=== PATIENT | female | born 1950 | race Two or more races ===

== ENCOUNTER 2016-12-30 03:29 | Inpatient (IN) | payer MEDICARE ==
[~2016-12-30] VITALS: Ht 160 cm; Wt 53.5 kg
[2016-12-30] MEDS ORDERED: MAG HYDROX/AL HYDROX/SIMETH 30 ML UDC PO PRN (07:00)
[2016-12-30] MEDS ORDERED: ACETAMINOPHEN 325 MG TABLET PO PRN (07:00)
[2016-12-30] MEDS ORDERED: MAGNESIUM HYDROXIDE 30 ML UDC PO PRN (07:00)
[2016-12-30 08:00] VITALS: BP 115/75
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
[2016-12-30 16:03] VITALS: BP 102/49
[2016-12-30] MEDS ORDERED: QUETIAPINE FUMARATE 25 MG TABLET PO SCH (17:00)
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
[2016-12-30 19:42] VITALS: BP 106/66
[2016-12-30] MEDS: TEMAZEPAM 7.5 MG CAPSULE PO PRN (22:18)
[2016-12-31] MEDS: CEPHALEXIN MONOHYDRATE 250 MG CAPSULE PO SCH ×5 (00:18→23:45)
[2016-12-31 06:50] LABS: BASOPHILS % (AUTO) 0.6 % (0.0-2.0); EOSINOPHILS # (AUTO) 0.1 /CMM (0.0-0.7); EOSINOPHILS % (AUTO) 2.3 % (0.0-6.0); HEMATOCRIT 39 % (33-45); HEMOGLOBIN 13.6 g/dL (11.5-14.8); LYMPHOCYTES # (AUTO) 1.5 /CMM (0.8-4.8); LYMPHOCYTES % (AUTO) 34.6 % (20.0-44.0); MEAN CORPUSCULAR HEMOGLOBIN 31 PG (26.0-33.0); MEAN CORPUSCULAR HGB CONC 35 g/dl (31.0-36.0); MEAN CORPUSCULAR VOLUME 89 fL (82-100); MONOCYTES # (AUTO) 0.4 /CMM (0.1-1.30); MONOCYTES % (AUTO) 8.1 % (2.0-12.0); NEUTROPHILS # (AUTO) 2.4 /CMM (1.8-8.9); NEUTROPHILS % (AUTO) 54.4 % (43.0-81.0); PLATELET COUNT (AUTO) 134 /CMM (150-450); RED BLOOD CELL COUNT(AUTO) 4.36 MIL/uL (4.0-5.2); WHITE BLOOD COUNT (AUTO) 4.4 K/uL (4.3-11.0)
[2016-12-31 07:07] LABS: ALBUMIN 3.6 g/dL (3.4-5.0); BILIRUBIN,TOTAL 0.7 mg/dL (0.2-1.0); CALCIUM, SERUM 8.6 mg/dL (8.5-10.1); CREATININE 0.7 mg/dL (0.6-1.3); PHOSPHORUS 3.3 mg/dL (2.5-4.9); POTASSIUM 3.8 mmol/L (3.5-5.1); TOTAL PROTEIN, SERUM 6.6 g/dL (6.4-8.2)
[2016-12-31 07:15] LABS: THYROID STIMULATING HORMONE 2.04 uIU/mL (0.358-3.74)
[2016-12-31 08:00] VITALS: BP 103/63
--- NOTE | 2016-12-31 08:41 | NUR ---
Initial Discharge Plan: Per patient, she lives at home with [place] [address]. ([phone]). Sw attempted to contact the only contact number provided on the face sheet. There was no answer, Sw unable to leave a voicemail as the voicemail box was full. Patient may need placement. Sw will help form a safe and proper discharge.
[2016-12-31] MEDS: clonazePAM 0.5 MG TABLET PO PRN (11:37)
[2016-12-31] MEDS: QUETIAPINE FUMARATE 25 MG TABLET PO SCH ×2 (12:26→16:30)
--- NOTE | 2016-12-31 13:35 | NUR ---
social worker aide faxed initial review packet to [facility] ( / ) [address] [place] [address]. social worker aide will follow-up.
[2016-12-31 16:00] VITALS: BP 117/56
[2016-12-31 20:00] VITALS: BP 122/85
[2016-12-31 20:26] VITALS: BP 122/85
[2016-12-31] MEDS: TEMAZEPAM 7.5 MG CAPSULE PO PRN (20:47)
[2017-01-01] MEDS: CEPHALEXIN MONOHYDRATE 250 MG CAPSULE PO SCH ×3 (05:13→16:58)
[2017-01-01 08:00] VITALS: BP 152/68
[2017-01-01] MEDS: QUETIAPINE FUMARATE 25 MG TABLET PO SCH ×3 (10:05→16:58)
--- NOTE | 2017-01-01 14:43 | NUR ---
Group Notes: S: Patient stated in group-"I don't have one question pending, but I would like to speak to you after the group." O: Patient participated in group discussion and was engaged with staff and peers. A: Patient remains confused at times and remain a poor historian. P: Will discuss patient's confusion with psychiatrist and will encourage patient to attend group activity.
[2017-01-01 15:59] VITALS: BP 112/66
[2017-01-01 19:00] VITALS: BP 152/68
[2017-01-01 20:31] VITALS: BP 128/69
[2017-01-01] MEDS: TEMAZEPAM 7.5 MG CAPSULE PO PRN (21:03)
[2017-01-02] MEDS: CEPHALEXIN MONOHYDRATE 250 MG CAPSULE PO SCH ×5 (00:28→23:52)
[2017-01-02] MEDS: clonazePAM 0.5 MG TABLET PO PRN ×2 (00:33→15:24)
[2017-01-02 08:00] VITALS: BP 120/75
[2017-01-02] MEDS: QUETIAPINE FUMARATE 25 MG TABLET PO SCH ×3 (08:57→16:55)
--- NOTE | 2017-01-02 09:58 | NUR ---
workers compensation legal secretary faxed initial review packet to [facility] (phone: [phone]/ ) [address] [place] [address]. workers compensation legal secretary will follow-up.
--- NOTE | 2017-01-02 11:22 | NUR ---
optical worker spoke to Kvng from [facility] (phone: [phone]/ ) [address] [place] [address], who stated that he was going to give the packet to his DON and would follow-up.
--- NOTE | 2017-01-02 11:24 | NUR ---
bingo worker spoke to Aquiles from [facility] ( / ) [address] [place] [address] who had questions regarding patient's insurance. Aquiles stated that it appears patient is getting money from workers compensation and the facility needs to know that she is no longer receiving workers compensation. Patient stated that she no longer receives workers compensation. Aquiles from the facility stated that his DON would like to come assess the patient. Sw will follow-up.
--- NOTE | 2017-01-02 15:26 | NUR ---
GPS RN: ADMINISTERED KLONOPIN 0.5MG FOR C/O ANXIETY AND RESTLESSNESS. PATIENT IS IN BED, INSTRUCTED ON RELAXATION TECHNIQUE, PROVIDED WITH CALM AND SAFE ENVIRONMENT, VS STABLE, CONTINUE TO MONITOR, 1:1 SITTER AT BEDSIDE FOR AWOL RISK.
[2017-01-02 16:00] VITALS: BP 100/67
--- NOTE | 2017-01-02 16:03 | NUR ---
Carl faxed initial review packet to [facility] ( /fax: [phone]) Carl will follow-up.
[2017-01-02 20:00] VITALS: BP 131/55
[2017-01-03] MEDS: CEPHALEXIN MONOHYDRATE 250 MG CAPSULE PO SCH ×3 (05:46→17:06)
[2017-01-03 08:00] VITALS: BP 100/61
[2017-01-03] MEDS: QUETIAPINE FUMARATE 25 MG TABLET PO SCH ×3 (08:48→17:05)
--- NOTE | 2017-01-03 14:49 | NUR ---
DR. DEVI CAME IN THE UNIT AND EXAMINED THE PT. AND ORDERED TO D/C 1:1.
--- NOTE | 2017-01-03 19:36 | NUR ---
GPS/RN NOTE: PATIENT IS AMBULATORY, WALKING AROUND THE UNIT WITH ANOTHER PATIENT. PATIENT IS CONFUSED, CALM, NO APPARENT DISTRESS NOTED. WILL CONTINUE TO MONITOR Q 15 MINS. TO [place] SAFETY.
[2017-01-03 20:00] VITALS: BP 142/62
--- NOTE | 2017-01-04 00:13 | NUR ---
GPS/RN NOTE: PATIENT REFUSED KEFLEX 250 MF CAP, OFFERED 3-4X, STILL REFUSED. PATIENT IS CONFUSED, NOT FOLLOWING DIRECTION.
[2017-01-04] MEDS: CEPHALEXIN MONOHYDRATE 250 MG CAPSULE PO SCH ×5 (05:44→23:24)
[2017-01-04 08:00] VITALS: BP 131/67
[2017-01-04] MEDS: QUETIAPINE FUMARATE 25 MG TABLET PO SCH ×3 (08:12→16:18)
[2017-01-04 16:10] VITALS: BP 107/78
[2017-01-04 20:00] VITALS: BP 144/81
[2017-01-04] MEDS: clonazePAM 0.5 MG TABLET PO PRN (20:53)
--- NOTE | 2017-01-04 20:53 | NUR ---
GPS/RN NOTE: PATIENT KEEPS ROAMING AROUND, WALKING, UNABLE TO KEEP STILL. KLONOPIN 0.5 MG TAB PO GIVEN.
[2017-01-05] MEDS: CEPHALEXIN MONOHYDRATE 250 MG CAPSULE PO SCH ×4 (05:58→23:00)
--- NOTE | 2017-01-05 07:30 | NUR ---
GPS/RN AM NOTE: PATIENT IS AWAKE, AMBULATORY, WALKING AROUND THE UNIT. PATIENT IS CONFUSED, CALM, NO APPARENT DISTRESS NOTED. WILL CONTINUE TO MONITOR Q 15 MINS. FOR SAFETY.
[2017-01-05 08:00] VITALS: BP 133/64
[2017-01-05 08:18] VITALS: BP 133/64
[2017-01-05] MEDS: QUETIAPINE FUMARATE 25 MG TABLET PO SCH ×2 (09:38→17:03)
[2017-01-05 16:00] VITALS: BP 97/68
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
[2017-01-05 20:16] VITALS: BP 147/71
[2017-01-05] MEDS: clonazePAM 0.5 MG TABLET PO PRN (22:58)
--- NOTE | 2017-01-05 23:01 | NUR ---
GPS/RN NOTE: PATIENT KEEPS GETTING UP, WALKING AROUND, KLONOPIN 0.5 MG TAB PO GIVEN.
[2017-01-06] MEDS: CEPHALEXIN MONOHYDRATE 250 MG CAPSULE PO SCH ×3 (05:05→17:12)
[2017-01-06 08:00] VITALS: BP 130/77
[2017-01-06] MEDS: QUETIAPINE FUMARATE 25 MG TABLET PO SCH ×2 (10:02→16:04)
--- NOTE | 2017-01-06 15:14 | NUR ---
garage worker spoke to Dainka from [facility] (phone: [phone]/ ) [address] [place] [address], who stated that they can accept the patient upon discharge. garage worker will follow-up.
[2017-01-06 16:00] VITALS: BP 147/62
[2017-01-06 19:50] VITALS: BP 140/71
[2017-01-07] MEDS: CEPHALEXIN MONOHYDRATE 250 MG CAPSULE PO SCH ×4 (00:06→17:00)
--- NOTE | 2017-01-07 06:42 | NUR ---
RN GPS NOTES PATIENT RESTING IN HER BED, NO CHANGES IN STATUS. ALL NEEDS ATTENDED TO. WILL ENDORSE TO NEXT SHIFT FOR CONTINUITY CARE.
[2017-01-07 07:28] LABS: APPEARANCE,URINE CLEAR (CLEAR)
[2017-01-07 07:29] LABS: BILIRUBIN,URINE NEGATIVE (NEGATIVE); BLOOD, URINE TRACE Ery/uL (NEGATIVE); COLOR,URINE YELLOW (YELLOW); KETONES,URINE NEGATIVE (NEGATIVE); LEUKOCYTE ESTERASE ,URINE 1+ (NEGATIVE); NITRITE, URINE NEGATIVE (NEGATIVE); PROTEIN,URINE NEGATIVE (NEGATIVE); UGLUCOSE NEGATIVE (NEGATIVE); UROBILINOGEN,URINE 0.2 EU/dL (0.2)
[2017-01-07 07:44] LABS: CALCIUM, SERUM 8.7 mg/dL (8.5-10.1); CREATININE 0.7 mg/dL (0.6-1.3); MAGNESIUM 2.1 mg/dL (1.8-2.4); POTASSIUM 3.3 mmol/L (3.5-5.1)
[2017-01-07 07:47] LABS: BACTERIA,URINE Few /HPF (None Seen); RBC,URINE 0-2 /HPF (0-2)
[2017-01-07 07:48] LABS: SQUAMOUS EPITHELIAL CELL,UR Few /HPF (None Seen)
[2017-01-07 07:58] LABS: BASOPHILS % (AUTO) 0.5 % (0.0-2.0); EOSINOPHILS # (AUTO) 0.1 /CMM (0.0-0.7); EOSINOPHILS % (AUTO) 2.1 % (0.0-6.0); HEMATOCRIT 43 % (33-45); HEMOGLOBIN 14.8 g/dL (11.5-14.8); LYMPHOCYTES # (AUTO) 1.8 /CMM (0.8-4.8); LYMPHOCYTES % (AUTO) 34.5 % (20.0-44.0); MEAN CORPUSCULAR HEMOGLOBIN 31 PG (26.0-33.0); MEAN CORPUSCULAR HGB CONC 34 g/dl (31.0-36.0); MEAN CORPUSCULAR VOLUME 90 fL (82-100); MONOCYTES # (AUTO) 0.4 /CMM (0.1-1.30); NEUTROPHILS # (AUTO) 2.9 /CMM (1.8-8.9); NEUTROPHILS % (AUTO) 54.9 % (43.0-81.0); PLATELET COUNT (AUTO) 146 /CMM (150-450); RDW COEFFICIENT OF VARIATION 11.8 (11.5-15.0); RED BLOOD CELL COUNT(AUTO) 4.83 MIL/uL (4.0-5.2); WHITE BLOOD COUNT (AUTO) 5.4 K/uL (4.3-11.0)
[2017-01-07 08:00] VITALS: BP 114/60
[2017-01-07] MEDS: QUETIAPINE FUMARATE 25 MG TABLET PO SCH ×2 (08:00→16:54)
[2017-01-07] MEDS ORDERED: POTASSIUM CHLORIDE 20 MEQ TAB.PRT.SR PO SCH (11:30)
[2017-01-07 16:00] VITALS: BP 117/67
[2017-01-07 20:08] VITALS: BP 119/62
[2017-01-07] MEDS: TEMAZEPAM 7.5 MG CAPSULE PO PRN (22:48)
[2017-01-08] MEDS: CEPHALEXIN MONOHYDRATE 250 MG CAPSULE PO SCH ×3 (00:30→11:54)
--- NOTE | 2017-01-08 06:25 | NUR ---
RN GPS NOTES PATIENT RESTING IN HER BED, NO CHANGES IN STATUS. ALL NEEDS ATTENDED TO. WILL ENDORSE TO NEXT SHIFT FOR CONTINUITY CARE.
[2017-01-08 08:00] VITALS: BP 131/71
[2017-01-08] MEDS: QUETIAPINE FUMARATE 25 MG TABLET PO SCH (08:09)
[2017-01-08] MEDS: clonazePAM 0.5 MG TABLET PO PRN (08:27)
--- NOTE | 2017-01-08 13:00 | NUR ---
[employer] ARCHITECT PT AO X3 NO DISTRESS NOTED ALL PT NEEDS MEET EXIT CARE DONE PT TEACHING DONE REPORT GIVEN TO RADHA ZHENG AT [facility] PT LEFT VIA AMBULANCE UNDER STABLE CONDITION, PT DOES NOT HAVE GOOD UNDERSTANING OF TEACHING AND NEEDS FURTHER CARE IN SHELTER.
--- NOTE | 2017-01-08 14:59 | NUR ---
Discharge Note: Patient was discharged to [facility] [address] [place] [address] ([phone]). Via med response. Patient did not have any family to notify. Patient was agreeable with the discharge plan. Patient's mood and affect were calm and appropriate upon discharge. Patient denied suicidal and homicidal ideations. Patient will follow-up with psychiatrist Dr. Weir at the facility. Facilitated info to IDT team who are in agreement with discharge arrangement. The multidisciplinary exitcare form was done, printed, signed, and given to the patient.
== END 2017-01-08 13:00 | DRG 885 ==
LOC: GPS 06:44
PROVIDERS: ADMIT Psychiatry & Neurology Psychiatry; ATTEND Nurse Practitioner Acute Care
DX: F29 Unspecified psychosis not due to a substance or known physiological condition (principal); F02.80 Dementia in other diseases classified elsewhere, unspecified severity, without behavioral disturbance, psychotic disturbance, mood disturbance, and anxiety; G93.40 Encephalopathy, unspecified; N39.0 Urinary tract infection, site not specified; G30.9 Alzheimer's disease, unspecified; E78.00 Pure hypercholesterolemia, unspecified; E87.6 Hypokalemia
CPT/HCPCS: 36415; 70450-TC; 80048-TC; 80053-TC; 80061-TC; 81000-TC; 82140-TC; 82746; 83540-TC; 83735-TC; 84100-TC; 84443-TC; 85025-TC; 87086-TC